=== PATIENT | male | born 1985 | race Caucasian/White ===

== ENCOUNTER 2021-02-07 19:30 | Inpatient (IN) | payer OTHER ==
[~2021-02-07] VITALS: Ht 182.9 cm; Wt 136.1 kg
--- NOTE | ~2021-02-07 | OP ---
[address] [address] OPERATIVE REPORT Name: ALEXANDRIA RUIZ Room: [address] IN M.R.#: [id number] Admission: 02/09/21 Attend Phys: Veronique Sullivan MD Discharge: Date of : 83 Report #: [id number] THIS REPORT FOR: cc: DARREL - No family physician/PCP FAM - No family physician/PCP Bryson Hollingsworth MD ~ DOC #: [id number] Bryson Hollingsworth MD DATE OF SURGERY: 02/08/2021 PREOPERATIVE DIAGNOSIS: Acute cholecystitis. POSTOPERATIVE DIAGNOSIS: Acute gangrenous cholecystitis with ruptured gallbladder. OPERATIVE PROCEDURE DONE: Laparoscopic cholecystectomy. OPERATING SURGEON: Bryson Hollingsworth MD INDICATION FOR THE PROCEDURE: The patient is a 35-year-old male who presented with complaints of acute onset of 2-day history of lower abdominal pain. However, CT scan and clinical exam showed features suggestive of acute cholecystitis. The patient was advised laparoscopic cholecystectomy. The patient showed understanding and agreed to proceed. DESCRIPTION OF PROCEDURE: After explaining to the patient in detail, an informed consent was obtained. The patient was identified in the preoperative holding area. The patient was transferred to the operating room and was placed in supine position. Sequential compression devices were placed for DVT prophylaxis. Preoperative antibiotics were given. After induction of anesthesia, the abdomen was prepped and draped in a sterile fashion. Through a right upper quadrant 1 cm incision using Optiview technique, peritoneal cavity was entered and pneumoperitoneum was created. Thereafter, under direct vision, another 5 mm trocar was placed through a supraumbilical incision. Another 5 mm trocar was placed in the epigastrium and one in the right lateral subcostal region. Upon initial inspection, the gallbladder appeared inflamed and edematous. There was omental phlegmon over the gallbladder. As soon as I removed the phlegmon, there were features of bile leak that was noted from the gallbladder fundus region and some bile leak already in the gallbladder fossa that was noted. The gallbladder was retracted. Under peritoneal reflection, the neck of the gallbladder was gently dissected off. This part of the dissection was very difficult as the patient was noted to have fatty liver and exposure was very difficult. I continued to retract and carefully dissected the region on the Calot's triangle and the cystic duct. I identified the cystic duct, isolated from the surrounding structures. The cystic artery area was little ill-defined and I could not delineate the anatomy very [place] [address] OPERATIVE REPORT Name: ALEXANDRIA RUIZ Room: [address] IN [facility]#: [id number] Admission: 02/09/21 Attend Phys: Veronique Sullivan MD Discharge: Date of : 83 Report #: [id number] better exposure, I then divided the cystic duct, double clipped proximally and single clip applied distally and was then divided. As I carefully continued dissection near the cystic duct area, again due to severe adhesions, I was not able to define the anatomy. Therefore, I decided to do a retrograde approach with the dissection of the fundus, continued to dissect using hook electrocautery. The posterior part of the gallbladder was necrotic in the most areas and therefore I was not easily able to get into the deep correct plane. Again, with careful dissection, I continued to dissect the gallbladder and I was finally able to get into the right plane; however, the continued oozing from the liver bed made dissection difficult. I again retracted the gallbladder and I was finally able to identify the cystic artery. I double clipped proximally and single clip applied distally and was then divided. I then continued to mobilize the rest of the gallbladder. There was some spillage of bile during dissection of the gallbladder. The gallbladder was then retrieved using an EndoCatch. Thorough saline irrigation was given. Absolute hemostasis was ensured. Surgicel was placed for hemostasis in the gallbladder fossa. A 19-Finnish SHELIA drain was also placed. The 8 mm port site lateral incision was closed with 0 Vicryl for the fascia. Skin was closed with 4-0 Monocryl for the incision. Dermabond was applied. The patient was stable at the end of the procedure. The patient was awoken from anesthesia and was transferred to the recovery room in stable condition. ESTIMATED BLOOD LOSS: Approximately 100 mL. CONDITION: The patient is stable. FLUIDS GIVEN: Per anesthesia notes. SPECIMEN SENT: Gallbladder. COMPLICATIONS: None. ANESTHESIA: General anesthesia. MD MADAN Turcios/JOSÉ/DAPHNEY By: [id number] Hollingsworth MD /dara
[2021-02-07 19:31] VITALS: BP 121/67
[2021-02-07 20:00] LABS: HEMATOCRIT 42.8 % (42.0-52.0); MCH 28.7 pg (26.0-34.0); MCHC 34.9 g/dL (28.0-37.0); MPV 7.8 fl. (7.2-11.1); NUCLEATED RBCS 0 /100WBC; PLATELET COUNT* 237 thou/uL (150-400); RBC 5.22 mil/uL (4.50-6.00); RDW-CV 13.6 % (10.5-14.5); WBC 10.5 thou/uL (4.0-11.0)
[2021-02-07 20:07] LABS: CALCIUM 8.6 mg/dL (8.5-10.1); CREATININE 1.5 mg/dL (0.6-1.3); POTASSIUM 3.6 mmol/L (3.5-5.1)
[2021-02-07 20:12] LABS: ALBUMIN 3.4 g/dL (3.4-5.0); TOTAL BILIRUBIN 1.5 mg/dL (<0.1-1.0)
[2021-02-07 20:25] LABS: ABSOLUTE LYMPHOCYTES 0.6 thou/uL (0.8-5.3); ABSOLUTE MONOCYTES 0.8 thou/uL (0.0-1.2); PLATELET ESTIMATE ADEQUATE
[2021-02-07 20:26] LABS: LARGE PLATELETS FEW
[2021-02-07 22:25] VITALS: BP 121/67
[2021-02-08 09:51] LABS: SQUAMOUS 0-3 Few /LPF (0-3); URINE BILIRUBIN NEGATIVE (Negative); URINE BLOOD 1+ (Negative); URINE CLARITY CLEAR; URINE COLOR DARK YELLOW; URINE GLUCOSE-RANDOM TRACE (Negative); URINE KETONES NEGATIVE (Negative); URINE LEUKOCYTES-REFLEX NEGATIVE (Negative); URINE NITRITE-REFLEX NEGATIVE (Negative); URINE PROTEIN 1+ (Negative); URINE UROBILINOGEN 0.2 E.U./dl (0.2-1.0)
[2021-02-08 09:52] LABS: BACTERIA-REFLEX 1-9 Few /HPF (None Seen); CASTS None Seen /LPF (None Seen); CRYSTALS None Seen /LPF (None Seen); MUCUS 4-6 Moderate strn/LPF (None Seen); URINE RBC 0-2 Rare /HPF (0-2); URINE WBC-REFLEX 0-5 Rare /HPF (0-5)
--- NOTE | 2021-02-08 13:40 | NUR ---
Pt is A&O. Resides at home with . Independent. No DME. No hx of HH or SNF. Pt to have lap paul today then move to tele. Do not anticipate any dc needs. CM following.
--- NOTE | 2021-02-08 14:34 | EKG ---
[place] [address] ELECTROCARDIOGRAM REPORT Name: ALEXANDRIA RUIZ Room: [address] M.R.#: [id number] Admission: 02/07/21 Attend Phys: Veronique Sullivan MD Discharge: Date of : 83 Date of Service: 02/07/211935 Report #: [id number] THIS REPORT FOR: //name// [facility] ED Test Date: 2021-02-07 Test Time: 19:36:34 Pat Name: ALEXANDRIA RUIZ Department: Room: [address] Gender: M [employer] Distributor: DT : 1985 Requested By: Kimberli Mosher Order Number: [id number] Brian MD: Jeffrey Schroeder Measurements Intervals Jber Rate: 70 P: 31 MO: 148 QRS: -1 QRSD: 98 T: 45 QT: 374 QTc: 404 Interpretive Statements Sinus rhythm ST elev, probable normal early repol pattern No previous ECG available for comparison Electronically Signed On 02-08-2021 14:33:46 CDT by Jeffrey Schroeder [email or web address] <ELECTRONICALLY SIGNED> By: Jeffrey Scrhoeder MD, [facility] 02/08/21 1433 35 35 Jeffrey Schroeder MD, [facility] [facility] /EPI
[2021-02-08 14:47] LABS: ABSOLUTE LYMPHOCYTES 0.5 thou/uL (0.8-5.3); ABSOLUTE MONOCYTES 0.9 thou/uL (0.0-1.2); BASOPHILS 0.3 %; EOSINOPHILS 0.1 %; HEMATOCRIT 37.8 % (42.0-52.0); LYMPHOCYTES 5.8 %; MCHC 34.1 g/dL (28.0-37.0); MCV 82.1 fL (80.0-100.0); MONOCYTES 11.2 %; NUCLEATED RBCS 0 /100WBC; PLATELET COUNT* 200 thou/uL (150-400); POLYS 82.6 %; RBC 4.61 mil/uL (4.50-6.00); RDW-CV 13.7 % (10.5-14.5); WBC 8.4 thou/uL (4.0-11.0)
[2021-02-08 14:50] LABS: HEMOGLOBIN 12.9 gm/dL (14.0-18.0)
[2021-02-08 14:56] LABS: ALBUMIN 2.6 g/dL (3.4-5.0); CALCIUM 7.9 mg/dL (8.5-10.1); CREATININE 1.2 mg/dL (0.6-1.3); POTASSIUM 3.8 mmol/L (3.5-5.1); TOTAL PROTEIN 7.1 g/dL (6.4-8.2)
[2021-02-08 15:15] VITALS: BP 156/106
--- NOTE | 2021-02-08 19:28 | NUR ---
PATIENT RESTING IN BED. PATIENT HAD SURGERY THIS AM AND RETURNED TO ROOM AT 1515. PATIENT IS TOLERATING CLEAR LIQUIDS, DENIES ANY NAUSEA. PATIENT HAS DENIED ANY SIGNIFICANT PAIN SINCE RETURN TO ROOM. PATIENT HAS CAPNO ON WITH 4L/NC. PATIENT DENIES ANY NEEDS AT THIS TIME. CALL LIGHT WITHIN REACH. BED ALARM ON.
[2021-02-08 20:00] VITALS: BP 115/62
[2021-02-09] VITALS: BP 105/50
--- NOTE | 2021-02-09 04:18 | NUR ---
PT A&O, ON 5L BY NC WITH CAPNO. PAIN ONLY WITH MOVEMENT. FENTANYL GIVEN X1. PT DENIED N/V AND REFUSED ZOFRAN, THEN VOMITTED X1, GREEN EMESIS. LAP SITES C/D/I. SHELIA DRAIN IN PLACE. EDUCATION GIVEN ON IS. UP WITH SBA TO BR. IVF INFUISING. CALL LIGHT WITHIN REACH. WILL CONTINUE TO MONITOR.
[2021-02-09 05:05] VITALS: BP 117/58
[2021-02-09 06:30] LABS: ABSOLUTE LYMPHOCYTES 0.7 thou/uL (0.8-5.3); ABSOLUTE MONOCYTES 1.1 thou/uL (0.0-1.2); BASOPHILS 0.1 %; HEMATOCRIT 36.6 % (42.0-52.0); HEMOGLOBIN 12.9 gm/dL (14.0-18.0); LYMPHOCYTES 6.1 %; MCH 28.7 pg (26.0-34.0); MCHC 35.2 g/dL (28.0-37.0); MCV 81.6 fL (80.0-100.0); MONOCYTES 9.9 %; MPV 8.3 fl. (7.2-11.1); NUCLEATED RBCS 0 /100WBC; PLATELET COUNT* 253 thou/uL (150-400); POLYS 83.9 %; RBC 4.48 mil/uL (4.50-6.00); RDW-CV 13.7 % (10.5-14.5); WBC 10.8 thou/uL (4.0-11.0)
[2021-02-09 06:45] LABS: CALCIUM 7.9 mg/dL (8.5-10.1); CREATININE 1.2 mg/dL (0.6-1.3); POTASSIUM 3.3 mmol/L (3.5-5.1)
[2021-02-09 08:00] VITALS: BP 116/72
--- NOTE | 2021-02-09 15:20 | NUR ---
Anticipate dc to home tomorrow. Lap paul yesterday. Surgery following. IVabx. Advance diet. No needs anticipated at dc.
[2021-02-09 16:00] VITALS: BP 112/70
--- NOTE | 2021-02-09 19:53 | NUR ---
PT HAD LOW GRADE FEVER THIS MID AM OF 100. THEN FEVER WENT AWAY. PT UP IN ROOM MOVING SLOWLY. PT HAS THROWN UP 2 TIMES TODAY AFTER MOVING. ABSD IS VERY HARD, PT IS PASSING GAS. PT UNABLE TO EAT ANY FOODS BUT IS KEEPING SOME FLUIDS DOWN. WILL CONTINUE TO MONITOR PLAN OF CARE.
[2021-02-09 20:25] VITALS: BP 95/61
[2021-02-10 00:10] VITALS: BP 112/62
[2021-02-10 04:15] VITALS: BP 113/71
--- NOTE | 2021-02-10 05:07 | NUR ---
PT A&OX4, VSS ON 5L NC, PT UP WITH SBA TO BR. IV FLUIDS INFUSING ORDERED. SHELIA DRAIN IN PLACE. NO CO PAIN THIS SHIFT. PT FEBRILEAT 2024, TYLENOL GIVEN ORDERED, TEMP 98.4 AT 0. PT SLEEPING WELL. ASSESSMENTS AND HOURLY ROUNDINGS COMPLETE. WILL CONTINUE TO MONITOR.
[2021-02-10 08:00] VITALS: BP 128/111
[2021-02-10 09:26] LABS: ABSOLUTE LYMPHOCYTES 1.1 thou/uL (0.8-5.3); BASOPHILS 0.2 %; EOSINOPHILS 0.3 %; HEMATOCRIT 35.7 % (42.0-52.0); HEMOGLOBIN 12.1 gm/dL (14.0-18.0); LYMPHOCYTES 10.5 %; MCV 82.4 fL (80.0-100.0); MONOCYTES 10.1 %; MPV 8.1 fl. (7.2-11.1); NUCLEATED RBCS 0 /100WBC; PLATELET COUNT* 264 thou/uL (150-400); POLYS 78.9 %; RBC 4.33 mil/uL (4.50-6.00); RDW-CV 14.1 % (10.5-14.5); WBC 10.1 thou/uL (4.0-11.0)
[2021-02-10 09:39] LABS: CALCIUM 7.9 mg/dL (8.5-10.1); CREATININE 1.1 mg/dL (0.6-1.3); POTASSIUM 3.2 mmol/L (3.5-5.1)
[2021-02-10 11:35] VITALS: BP 117/65
[2021-02-10 16:01] VITALS: BP 123/72
--- NOTE | 2021-02-10 17:34 | NUR ---
PATIENT RESTING IN CHAIR. FRIEND AT BEDSIDE. THREE INCISION SITES TO ABDOMEN, INTACT WITH DERMABOND. SHELIA DRAIN TO RIGHT ABDOMEN TO DEPENDENT DRAINAGE. IV TO RIGHT HAND, SALINE LOCKED. IV TO LEFT AC, WITH NORMAL SALINE INFUSING AT 100. DRESSINGS C/D/I. SAT 94% ON 3L NASAL CANNULA. NO C/O PAIN. C/O OF SOME DISCOMFORT. PAIN MEDS REFUSED. SCD'S ON WHEN IN BED. BED IN LOW/LOCKED POSITION. CALL LIGHT WITHIN REACH. ALL QUESTIONS AND CONCERNS ADDRESSED.
[2021-02-10 19:06] VITALS: BP 121/64
[2021-02-11 00:10] VITALS: BP 116/68
--- NOTE | 2021-02-11 03:53 | NUR ---
PT A&OX4, VSS ON 3L NC, IV FLUIDS INFUSING ORDERED. PT UP AD ZENY. SHELIA DRAIN IN PLACE. NO CO PAIN THIS SHIFT. ASSESSMENTS AND HOURLY ROUNDINGS COMPLETE. WILL CONTINUE TO MONITOR.
[2021-02-11 04:20] VITALS: BP 122/72
[2021-02-11 08:00] VITALS: BP 122/70
[2021-02-11] MEDS ORDERED: IBUPROFEN200 M1 PO (08:18)
[2021-02-11] MEDS ORDERED: TYLENOL EXTRA500 MG PO (08:18)
[2021-02-11] MEDS ORDERED: PHENERGAN 25 MG25 M1 PO (08:18)
[2021-02-11 08:31] LABS: ABSOLUTE LYMPHOCYTES 0.3 thou/uL (0.8-5.3); ABSOLUTE MONOCYTES 2.4 thou/uL (0.0-1.2); ABSOLUTE NEUTROPHILS 7.1 thou/uL (1.6-8.1); EOSINOPHILS 0.4 %; HEMATOCRIT 35.9 % (42.0-52.0); HEMOGLOBIN 12.2 gm/dL (14.0-18.0); LYMPHOCYTES 3.3 %; MCH 27.8 pg (26.0-34.0); MCV 81.8 fL (80.0-100.0); MONOCYTES 24.3 %; MPV 8.1 fl. (7.2-11.1); NUCLEATED RBCS 0 /100WBC; PLATELET COUNT* 319 thou/uL (150-400); RBC 4.39 mil/uL (4.50-6.00); RDW-CV 13.9 % (10.5-14.5); WBC 9.8 thou/uL (4.0-11.0)
[2021-02-11 09:09] LABS: POTASSIUM 2.8 mmol/L (3.5-5.1)
[2021-02-11 10:34] LABS: MAGNESIUM 2.5 mg/dL (1.8-2.4); PHOSPHORUS* 3.1 mg/dL (2.5-4.9)
[2021-02-11 11:19] VITALS: BP 122/70
[2021-02-11 12:08] LABS: PLATELET ESTIMATE ADEQUATE
--- NOTE | 2021-02-11 12:50 | NUR ---
PATIENT DISCHARGED AT THIS TIME VIA WHEELCHAIR ACCOMPANIED BY AND NURSE TECH TO PRIVATE VEHICLE. IV DC'D, SITE COVERED WITH COTTON AND TAPE. SHELIA DRAIN DC'D, SITE COVERED WITH BANDAID. THREE INCISIONS TO ABDOMEN INTACT WITH DERMABOND. DISCHARGE INSTRUCTIONS REVIEWED. PATIENT ACKNOWLEDGED UNDERSTANDING. ALL QUESTIONS AND CONCERNS ADDRESSED.
--- NOTE | 2021-02-13 11:07 | PATH ---
[facility] [address] [place] [address] PATHOLOGY RPT PROCEDURE Name: ALEXANDRIA RUIZ Room: [address] IN M.R.#: [id number] Admission: 02/09/21 Date of : 83 Discharge: 02/11/21 Report #: [id number] Path Case #: [id number] [facility] Accession Number: [id number] . 01 Material submitted: . gallbladder - GALLBLADDER . 01 Clinical history: . LAPAROSCOPIC CHOLECYSTECTOMY ACUTE CHOLECYSTITIS . 02 Diagnosis: Gallbladder: - Chronic and acute gangrenous cholecystitis. (MAMADOU:malini; 02/12/2021) BANNER 02/12/2021 1625 Local . 02 Electronically signed: . Jassi García MD, Pathologist NPI- [id number] . 01 Gross description: . Fixative: Formalin Labeled: Gallbladder Specimen received: Previously opened cholecystectomy specimen Dimensions: 7.6 x 4.1 x 2.7 cm Serosa: Red-brown, hemorrhagic, and ragged with a full-thickness defect in the hepatic bed measuring 3.5 x 2.9 cm Lymph node: None identified Mucosa: Red-brown and partially velvety, partially ragged and displaying green-melton purulent exudate. The gallbladder contains red-brown hemorrhagic material Average wall thickness: 0.5-0.7 cm Calculi: None identified within the gallbladder or container Abnormalities: Within the container is a 3.8 x 3.5 x 0.8 cm aggregate of red-brown hemorrhagic material or soft tissue. A1- Broadband Engineer body, fundus, and the cystic duct margin A2- Broadband Engineer material from container. ([facility]; 02/11/2021) [facility] 02/11/2021 0907 Local . 02 Pathologist provided ICD-10: K81.2 . 02 CPT . 190762 Specimen Comment: A courtesy copy of this report has been sent to [phone] Specimen Comment: Report sent to / DR YORK Performed at: [address] [place] [address] PATHOLOGY RPT PROCEDURE Name: ALEXANDRIA RUIZ Room: [address] IN M.R.#: [id number] Admission: 02/09/21 Date of : 83 Discharge: 02/11/21 Report #: [id number] Path Case #: [id number] [address], [place], [place] [id number] MD Marquez Cui MD Phone: [phone] Performed at: 02 [facility] [address], [place], [place] [id number] MD Jassi García MD Phone: [phone]
== END 2021-02-11 12:45 | disposition home or self-care (01) | DRG 417 ==
LOC: M.ERS 19:30 → M.ORTHSURG 20:53 → M.TBA-ER 20:53 → M.ORTHSURG 22:40
PROVIDERS: Emergency Medicine; Internal Medicine; Surgery; ADMIT Family Medicine; ATTEND Family Medicine
PROC: 0FT44ZZ Resection of Gallbladder, Percutaneous Endoscopic Approach (ICD-10-PCS; principal; 2021-02-09)
DX: K81.0 Acute cholecystitis (principal); R65.11 Systemic inflammatory response syndrome (SIRS) of non-infectious origin with acute organ dysfunction; N17.9 Acute kidney failure, unspecified; Z68.41 Body mass index [BMI] 40.0-44.9, adult; K82.A1 Gangrene of gallbladder in cholecystitis; E66.01 Morbid (severe) obesity due to excess calories; Z20.822 Contact with and (suspected) exposure to COVID-19